=== PATIENT | male | born 1995 | race Caucasian/White ===

== ENCOUNTER 2020-12-09 09:29 | Outpatient (CLI) | payer OTHER | END 2020-12-09 09:49 | disposition home or self-care (01) | LOC: SONOGRAMA 09:29 | PROVIDERS: ATTEND Internal Medicine Gastroenterology | DX: K21.9 Gastro-esophageal reflux disease without esophagitis (principal); R10.11 Right upper quadrant pain; R13.19 Other dysphagia ==

== ENCOUNTER 2021-05-31 10:20 | Emergency (ER) | payer OTHER ==
[~2021-05-31] VITALS: Ht 175.3 cm; Wt 68.0 kg
[2021-05-31] MEDS ORDERED: OMEPRAZOLE MAGN20 MG (10:30)
== END 2021-05-31 16:20 | disposition home or self-care (01) ==
LOC: ER 10:20
DX: R10.31 Right lower quadrant pain (principal)

== ENCOUNTER → 2022-08-26 | Emergency (ER) | payer OTHER ==
[~2022-08-26] VITALS: Ht 175.3 cm; Wt 68.9 kg
[~2022-08-26] MED LIST: OMEPRAZOLE MAGN20 MG
== END | disposition left against medical advice (07) ==
LOC: ER 22:56
DX: Z53.21 Procedure and treatment not carried out due to patient leaving prior to being seen by health care provider (principal)